=== PATIENT | female | born 1965 | race Caucasian/White ===

== ENCOUNTER → 2018-04-12 | Outpatient (CLI) | payer OTHER ==
--- NOTE | 2018-04-20 09:20 | MM ---
Reason for exam: screening (asymptomatic). Last mammogram was performed 3 years and 2 months ago. History: Patient is postmenopausal. Family history of breast cancer in maternal grandmother and breast cancer in mother. Took hormonal contraceptives for 15 years. Physical Findings: A clinical breast exam by your physician is recommended on an annual basis and results should be correlated with mammographic findings. MG Screening Mammo w CAD Bilateral CC and MLO view(s) were taken. Prior study comparison: February 16, 2015, mammogram, performed at [facility]. There are scattered fibroglandular densities. No significant changes when compared with prior studies. ASSESSMENT: Negative, BI-RAD 1 RECOMMENDATION: Routine screening mammogram of both breasts in 1 year.
== END | disposition home or self-care (01) ==
LOC: RADMAMWWP 11:14
PROVIDERS: ATTEND Pediatrics
DX: Z12.31 Encounter for screening mammogram for malignant neoplasm of breast (principal)
CPT/HCPCS: 77067

== ENCOUNTER 2019-05-17 18:10 | Emergency (ER) | payer OTHER ==
[2019-05-17 18:25] VITALS: BP 132/80; PULSE 115; RESP 16; TEMP 98
--- NOTE | 2019-05-17 19:56 | XR ---
EXAMINATION TYPE: XR tibia fibula LT DATE OF EXAM: 05/17/2019 CLINICAL HISTORY: Pain after laceration injury. TECHNIQUE: Two views of the left leg are obtained. COMPARISON: None. FINDINGS: There is no acute fracture or dislocation seen in the left tibia or fibula. The left knee and ankle joints appear within normal limits. Linear lucency consistent with laceration mid to dista l diaphyseal level of proximal tibia medial aspect with posterior rounded density noted on lateral pr ojection not clearly seen on frontal projection could reflect overlying bandage or gauze material, so ft tissue foreign body cannot be excluded. Correlate clinically. IMPRESSION: As above.
[2019-05-17] MEDS ORDERED: LIDOCAINE 1% INJ 10MG/ML (20 ML MDV) SQ ONE (20:18)
--- NOTE | 2019-05-17 20:18 | ED ---
Wound/Laceration HPI - General Chief Complaint: Wound/Laceration Stated Complaint: Leg lac Time Seen by Provider: 05/17/19 18:48 Source: patient Mode of arrival: ambulatory Limitations: no limitations - History of Present Illness Initial Comments: 53-year-old female presenting for left leg laceration. Patient states just prior to arrival she was standing on a glass table when her leg fell through the center but she states she sustained a laceration to the medial aspect of the left lower leg. Just proximal to the ankle joint. Patient states that her tetanus is up-to-date. Patient denies any numbness tingling or loss sensation or decreased range of motion at the ankle or foot. Patient denies any footdrop. Remaining review of system negative. Patient able to her upon arrival patient was applying pressure bleeding controlled. - Related Data Home Medications Medication Instructions Recorded Confirmed Baclofen 10 mg PO Q6H PRN 10/08/15 05/09/16 DULoxetine HCL [Cymbalta] 60 mg PO BID 10/08/15 05/09/16 Cyanocobalamin [Vitamin B-12] 500 mcg PO DAILY 10/09/15 05/09/16 HYDROcodone/APAP 7.5-325MG [[place] 1 tab PO Q6H PRN 10/09/15 05/09/16 7.5-325] Ibuprofen [Motrin] 1 tab PO TID PRN 10/09/15 05/09/16 ALPRAZolam [Xanax] 0.25 mg PO BID 11/01/15 05/09/16 buPROPion SR [Wellbutrin Sr] 150 mg PO BID 11/01/15 05/09/16 Pregabalin [Lyrica] 25 mg PO TID 11/29/15 05/09/16 Metoprolol Succinate (ER) [Toprol 25 mg PO QAM 03/18/16 05/09/16 Xl] [place]-3 Fatty Acids [[place]-3] 2,000 mg PO BID 03/18/16 05/09/16 Pantoprazole Sodium [Protonix] 40 mg PO QAM 03/18/16 05/09/16 Pravastatin Sodium [Pravachol] 40 mg PO HS 03/18/16 05/09/16 Previous Rx's Medication Instructions Recorded Cephalexin [Keflex] 500 mg PO Q8HR 5 Days #15 cap 05/17/19 Allergies Allergy/AdvReac Type Severity Reaction Status Date / Time amoxicillin Allergy VOMITING Verified 05/17/19 18:25 AND DIARRHEA Review of Systems ROS Statement: Those systems with pertinent positive or pertinent negative responses have been documented in the HPI. ROS Other: All systems not noted in ROS Statement are negative. Past Medical History Past Medical History: CVA/TIA, GERD/Reflux Additional Past Medical History / Comment(s): MIGRAINE HEADACHE. Recent hx. rapid heart rate, placed on medication. POST MENOPAUSAL. History of Any Multi-Drug Resistant Organisms: None Reported Past Surgical History: Tubal Ligation Additional Past Surgical History / Comment(s): Repair of brain aneurysm x3 2013. Past Anesthesia/Blood Transfusion Reactions: Family History of Problems w/ Anesthesia Additional Past Anesthesia/Blood Transfusion Reaction / Comment(s): daughter seizure with anesthesia, Past Psychological History: Anxiety Smoking Status: Current every day smoker Past Alcohol Use History: None Reported Past Drug Use History: None Reported - Past Family History Mother Family Medical History: Cancer General Exam - General Exam Comments Initial Comments: General: The patient is awake and alert, in no distress, and does not appear acutely ill. Eye: Pupils are equal, round and reactive to light, extra-ocular movements are intact. No nystagmus. There is normal conjunctiva bilaterally. No signs of icterus. Cardiovascular: There is a regular rate and rhythm. No murmur, rub or gallop is appreciated. Respiratory: Lungs are clear to auscultation, respirations are non-labored, breath sounds are equal. No wheezes, stridor, rales, or rhonchi. Musculoskeletal: Normal ROM, no tenderness. Strength 5/5 knee and ankle joint. Sensation intact proximal and distal to injury sitre. DP pulses equal bilaterally 2+. Neurological: A&O x 3. CN II-XII intact grossly, There are no obvious motor or sensory deficits. Coordination appears grossly intact. Speech is normal. Skin: Skin is warm and dry and no rashes. V shaped laceration 3x3 cm on each side of the v shape. No exposure of tendon, no active bleeding, no evidence of FB. Psychiatric: Cooperative, appropriate mood & affect, normal judgment. Limitations: no limitations Course Vital Signs 05/17/19 18:23 Temperature 98 F Pulse Rate 115 H Respiratory 16 Rate Blood Pressure 132/80 O2 Sat by Pulse 97 Oximetry Procedures - Laceration Laceration #1 Consent Obtained: verbal consent Indication: laceration Site: lower extremity (left leg) Size (cm): 6 Description: flap, irregular Depth: simple, single layer Anesthetic Used: lidocaine 1% Anesthesia Technique: local infiltration Amount (mls): 5 Pre-repair: wound explored, irrigated extensively, deep structures intact Type of Sutures: nylon Size of Sutures: 4-0 Number of Sutures: 18 Technique: simple, interrupted Patient Tolerated Procedure: well, no complications Additional Comments: Area cleansed with iodine extensively irrigated explored for foreign body no foreign body evident. No evidence of tendon injury. Or exposure. Medical Decision Making - Medical Decision Making 53-year-old female presents emergency department for evaluation of left leg laceration. No evidence of tendon injury. Patient's bleeding controlled. XRnegative for acute osseous process. Patient did have air suspicious for possible foreign body this was not patient examination and areas extensively irrigated. Patient tolerate procedure well. Patient had bacitracin and sterile bandage applied. Return parameters were discussed patient started on antibiotic. Patient discharged appearing well agreeable with care plan. Disposition Clinical Impression: Laceration of left leg Disposition: HOME SELF-CARE Condition: Good Instructions (If sedation given, give patient instructions): Care For Your Stitches (ED), Laceration (ED) Additional Instructions: Please use medication as discussed. Please follow-up with family doctor in the next 2 days for wound check. Removal of sutures on 7-10 days. Please return to emergency room if the symptoms increase or worsen or for any other concerns. Prescriptions: Cephalexin [Keflex] 500 mg PO Q8HR 5 Days #15 cap Is patient prescribed a controlled substance at d/c from ED?: No Referrals: Jones Armstrong MD [Primary Care Provider] - 1-2 days Time of Disposition: 20:59
== END 2019-05-17 21:10 | disposition home or self-care (01) ==
LOC: EC 18:10
DX: S81.812A Laceration without foreign body, left lower leg, initial encounter (principal); F41.9 Anxiety disorder, unspecified; K21.9 Gastro-esophageal reflux disease without esophagitis; F17.200 Nicotine dependence, unspecified, uncomplicated; Z79.899 Other long term (current) drug therapy; Z88.0 Allergy status to penicillin; Z86.73 Personal history of transient ischemic attack (TIA), and cerebral infarction without residual deficits; W01.110A Fall on same level from slipping, tripping and stumbling with subsequent striking against sharp glass, initial encounter
CPT/HCPCS: 73590; 99283; 12002; J2001

== ENCOUNTER → 2019-10-04 | Outpatient (CLI) | payer OTHER ==
--- NOTE | 2019-10-04 15:50 | CT ---
EXAMINATION TYPE: CT brain cspine wo con DATE OF EXAM: 10/04/2019 COMPARISON: CT dated 04/12/2013 HISTORY: Headaches and cervicalgia CT DLP: 1293 mGycm. Automated Exposure Control for Dose Reduction was Utilized. TECHNIQUE: CT scan of the head and cervical spine are performed without contrast. FINDINGS: Aneurysm coiling is seen of distal branches of the right middle cerebral artery and proxim al branches presumably of the right middle cerebral artery. This creates susceptibility artifact and slightly limits evaluation. Adjacent to this there is a small lacunar injury of the genu of the right internal capsule is CSF attenuated and chronic. Craniotomy change is seen of the right frontal lobe with craniectomy of the right temporal bone. Vascular stent is present of the cavernous portion of th e left internal carotid artery. Patency cannot be established without contrast. Postsurgical change o f C1 is also seen. There is no acute intracranial hemorrhage, mass effect, or midline shift identified. There is enceph alomalacia of the temporal lobe, likely postsurgical. Few patchy areas of hypoattenuation are seen wi thin the right periventricular white matter that may be postsurgical or on the basis of chronic micro angiopathy. Slight ex vacuo dilatation of the right lateral ventricle. The ventricles and sulci are w ithin normal limits in size. The globes are intact and the visualized sinuses are clear. Accessory s phenoid sinuses are evident with partial opacification of the left sphenoid sinus as there are inspis sated secretions. Cervical spine is visualized in its entirety from C1 through upper thoracic levels and demonstrates s atisfactory alignment without evidence of acute fracture or dislocation. Prevertebral soft tissue ap pears within normal limits. The C1-C2 articulation is unremarkable. Multilevel posterior disc osteophyte complexes are seen at C5-C6, C6-C7 and to a lesser degree at C7- T1. Multilevel facet arthropathy and uncovertebral hypertrophy are also seen. Multilevel intervertebr al disc space narrowing and anterior osteophytes are present with endplate sclerosis. Schmorl's node deformity of the superior endplate of C7. At C5-C6 and C6-C7 there is uncovertebral hypertrophy and facet arthropathy resulting in mild/moderat e bilateral neural foraminal narrowing. Broad-based disc bulge also results in at least mild spinal c anal stenosis. At C7-T1 there is mild bilateral uncovertebral hypertrophy and a small posterior disc osteophyte complex with mild right neural foraminal narrowing. No significant left neural foraminal n arrowing or spinal canal stenosis on CT. The lung apices demonstrate mild centrilobular emphysematous change. IMPRESSION: 1. There is no acute fracture or dislocation evident in the cervical spine. 2. No acute intracranial hemorrhage, mass effect, or midline shift is seen. 3. Craniotomy and craniectomy change of the right calvarium with encephalomalacia of the right tempor al lobe, patchy areas in the right frontal lobe, and old lacunar infarct of the genu of the right int ernal capsule. 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 Patency cannot be determined without contrast. 4. Mild burden nonspecific white matter change that may be on the basis of chronic microangiopathy (p articularly around the right periventricular white matter). 5. Moderate multilevel degenerative disc disease of the cervical spine with multilevel neural foramin al narrowing and at least mild spinal canal stenosis at C5-C6 and C6-C7. 6. Partial opacification with inspissated secretions of an accessory left sphenoid sinus.
== END | disposition home or self-care (01) ==
LOC: RADCTMAIN 15:19
PROVIDERS: ATTEND Psychiatry & Neurology Neurology
DX: M48.02 Spinal stenosis, cervical region (principal); M50.322 Other cervical disc degeneration at C5-C6 level; R90.89 Other abnormal findings on diagnostic imaging of central nervous system; G93.89 Other specified disorders of brain; I67.1 Cerebral aneurysm, nonruptured; R51 Headache; Z95.828 Presence of other vascular implants and grafts
CPT/HCPCS: 70450; 72125

== ENCOUNTER → 2020-02-17 | Outpatient (CLI) | payer OTHER ==
--- NOTE | 2020-02-17 10:46 | US ---
EXAMINATION TYPE: US carotid duplex BILAT DATE OF EXAM: 02/17/2020 COMPARISON: NONE CLINICAL HISTORY: R09.89 Other specified symptoms and signs involving. AMS EXAM MEASUREMENTS: RIGHT: Peak Systolic Velocity (PSV) cm/sec ----- Right CCA: 80.2 ----- Right ICA: 109 ----- Right ECA: 101 ICA/CCA ratio: 1.4 RIGHT: End Diastole cm/sec ----- Right CCA: 26.5 ----- Right ICA: 40.1 ----- Right ECA: 21.7 LEFT: Peak Systolic Velocity (PSV) cm/sec ----- Left CCA: 84.3 ----- Left ICA: 137 ----- Left ECA: 82.9 ICA/CCA ratio: 1.6 LEFT: End Diastole cm/sec ----- Left CCA: 29.2 ----- Left ICA: 45.2 ----- Left ECA: 17.0 VERTEBRALS (direction of flow): Right Vertebral: Antegrade Left Vertebral: Antegrade Rhythm: Normal No significant stenosis seen IMPRESSION: 1. Normal appearing carotid bifurcations without significant flow-limiting stenosis. Criteria for Assigning % of Stenosis / Diameter reduction (Estimation based on the indirect measurements of the internal carotid artery velocities (ICA PSV). 1. Normal (no stenosis)=ICA PSV < 125 cm/s: ratio < 2.0: ICA EDV<40 cm/s. 2. Less than 50% stenosis=ICA PSV < 125 cm/s: ratio < 2.0: ICA EDV<40 cm/s. 3. 50 to 69% stenosis=ICA PSV of 125 to 230 cm/s: ration 2.0 ? 4.0: ICA EDV 40-100 cm/s. 4. Greater than 70% stenosis to near occlusion= ICA PSV > 230 cm/s: ratio > 4.0: ICA EDV > 100 cm/s. 5. Near occlusion= ICA PSV velocities may be low or undetectable: variable ratio and ICA EDV. 6. Total occlusion=unable to detect flow.
== END | disposition home or self-care (01) ==
LOC: RADUSWWP 09:36
PROVIDERS: ATTEND Psychiatry & Neurology Neurology
DX: R09.89 Other specified symptoms and signs involving the circulatory and respiratory systems (principal)
CPT/HCPCS: 93880

== ENCOUNTER → 2020-08-20 | Outpatient (CLI) | payer OTHER ==
--- NOTE | 2020-08-20 15:44 | XR ---
Bilateral knees HISTORY: Knee pain 3 views of each knee submitted Posterior 3 changes are present, there is marginal spurring the medial compartments with joint space loss. Alignment is maintained. No fracture or dislocation. Suprapatellar increased attenuation is pre sent bilaterally. Spurring is present patellofemoral joints. IMPRESSION: Osteoarthritis, joint effusions.
--- NOTE | 2020-08-20 16:00 | XR ---
EXAMINATION TYPE: XR chest 2V DATE OF EXAM: 08/20/2020 COMPARISON: Chest x-ray 05/13/2013 HISTORY: R06.02, smoker TECHNIQUE: Frontal and lateral views of the chest are obtained. FINDINGS: There is no focal air space opacity, pleural effusion, or pneumothorax seen. The cardiac silhouette size is within normal limits. There are prominent lung volumes with flattening the hemidia phragms suggesting underlying COPD. Aorta is dense. There is thoracic spondylosis. Eventration of rig ht hemidiaphragm is noted. The osseous structures are intact. IMPRESSION: No acute cardiopulmonary process.
== END | disposition home or self-care (01) ==
LOC: LABWHC1 12:48
PROVIDERS: ATTEND Psychiatry & Neurology Neurology
DX: M17.0 Bilateral primary osteoarthritis of knee (principal); R06.02 Shortness of breath; M25.569 Pain in unspecified knee
CPT/HCPCS: 36415; 71046; 82306; 82607

== ENCOUNTER → 2021-05-23 | Outpatient (CLI) | payer OTHER ==
--- NOTE | 2021-05-23 15:40 | XR ---
EXAMINATION TYPE: XR chest 2V DATE OF EXAM: 05/23/2021 COMPARISON: Chest x-ray 08/20/2020 CT 10/04/2019 HISTORY: R 63.4 TECHNIQUE: Frontal and lateral views of the chest are obtained. FINDINGS: There is no focal air space opacity, pleural effusion, or pneumothorax seen. The cardiac silhouette size is within normal limits. Prominent lung markings suggest underlying COPD. The osseous structures are intact. IMPRESSION: No acute cardiopulmonary process. Emphysema.
== END | disposition home or self-care (01) ==
LOC: RADXRMAIN 15:01
PROVIDERS: ATTEND Physician Assistant
DX: J43.9 Emphysema, unspecified (principal)
CPT/HCPCS: 71046

== ENCOUNTER → 2021-07-03 | Outpatient (CLI) | payer OTHER ==
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
== END | disposition home or self-care (01) ==
LOC: RADCTMAIN 14:35
PROVIDERS: ATTEND Psychiatry & Neurology Neurology
DX: I72.0 Aneurysm of carotid artery (principal)
CPT/HCPCS: 70496; 70498; Q9967

== ENCOUNTER → 2023-10-28 | Outpatient (CLI) | payer OTHER ==
--- NOTE | 2023-11-03 13:38 | CT ---
EXAMINATION TYPE: CT chest wo/w con CT DLP: 444.4 mGycm, Automated exposure control for dose reduction was used. DATE OF EXAM: 10/28/2023 2:38 PM COMPARISON: Chest radiograph from same day. Multiple CTs of the chest with most recent on . CLINICAL INDICATION:Female, 58 years old with history of R91.8 pulmonary mass; PHH, pulmonary mass TECHNIQUE: Multiple axial images were obtained through the chest. Sagittal and coronal reformats were created for review. Contrast used:100 mL of Isovue 300 with IV Contrast (None if empty) Oral contrast used: (None if empty) FINDINGS: LUNGS/ PLEURA: Scattered patchy groundglass airspace disease with more focal consolidating process in the posterior right lower lobe. Differential diagnostic iterations include sarcoid, viral, bacterial , or less favored, neoplasm. AIRWAY: Patent and unremarkable. HEART: Size within normal limits. MEDIASTINUM: No gross evidence of adenopathy. VASCULATURE: No aortic aneurysm. MUSCULOSKELETAL: No acute osseous abnormalities SOFT TISSUES/LYMPH NODES: Unremarkable. LOWER NECK: No significant findings. UPPER ABDOMEN: No significant findings. IMPRESSION: Nonspecific airspace disease pattern. Consists of Scattered patchy, right lower and right middle lo be groundglass airspace disease with more focal consolidating process in the posterior right lower lo be. Differential diagnostic iterations include sarcoid, viral, bacterial, or less favored, neoplasm. CoVID pneumonia might have this appearance as well. Please correlate with laboratory studies, history, physical, etc., consider short interval 3 month fo llow-up
== END | disposition home or self-care (01) ==
LOC: RADCTMAIN 14:11
PROVIDERS: ATTEND Pediatrics
DX: J98.4 Other disorders of lung (principal); R91.8 Other nonspecific abnormal finding of lung field
CPT/HCPCS: 71270; Q9967

== ENCOUNTER 2023-12-16 11:38 | Day surgery (SDC) | payer OTHER ==
[~2023-12-16 11:38] MED LIST: ATROPINE SULFATE 0.4 MG/ML 1 ML VIAL IM ONE; DEXAMETHASONE SOD PHOSPHATE 4 MG/ML 1 ML VIAL IV ONE; HYDROmorphone 0.5 MG/0.5 ML SYRINGE IVP PRN; LACTATED RINGERS 1,000 ML IV SCH; LIDOCAINE 1% (10MG/ML) FOR IV START INTRADERMA PRN; ONDANSETRON 4 MG/2 ML VIAL IVP ONE
[2023-12-16] MEDS: LACTATED RINGERS 1,000 ML IV SCH (12:08)
[2023-12-16] MEDS ORDERED: ROCURONIUM 10 MG/ML (5 ML VIAL) IV ONE (12:34)
[2023-12-16] MEDS ORDERED: LIDOCAINE 1% INJ 10MG/ML (20 ML MDV) ONE (12:34)
[2023-12-16] MEDS ORDERED: PROPOFOL 10 MG/ML 20 ML VIAL IV ONE (12:34)
[2023-12-16] MEDS ORDERED: GLYCOPYRROLATE 0.2 MG/ML 2 ML VIAL ONE (12:34)
[2023-12-16] MEDS ORDERED: fentaNYL (PF) 50 MCG/ML 2 ML AMP ONE (12:34)
[2023-12-16] MEDS ORDERED: SUCCINYLCHOLINE CHLORIDE 200 MG/10 ML VIAL IV ONE (12:34)
[2023-12-16] MEDS ORDERED: MIDAZOLAM 2 MG/2 ML VIAL ONE (12:34)
[2023-12-16] MEDS ORDERED: NEOSTIGMINE 1 MG/ML 10 ML VIAL ONE (12:34)
--- NOTE | 2023-12-16 13:16 | OP ---
OPERATIVE REPORT DATE OF SERVICE : PROCEDURE PERFORMED: Bronchoscopy; airway examination; therapeutic lavage; BAL, right middle lobe; BAL, right lower lobe; brushes, right lower lobe; transbronchial biopsies, right lower lobe. PREOPERATIVE DIAGNOSIS: Ground-glass changes, right middle lobe, right lower lobe, rule out infection versus inflammation versus cancer. Postoperative diagnosis: Rule out infection, versus inflammation, versus cancer. Financial Systems Director, Dr. Charles TAO RENTAL CAR FERRY DRIVER: Dr. Zara Alcantar. DESCRIPTION OF PROCEDURE: The patient's procedure was done in room #1 [facility]. There was informed consent and universal timeout. Anesthesia provided general anesthesia for this patient. There was general endotracheal anesthesia. After the patient was adequately sedated and on the anesthesia machine, and being monitored, the bronchoscope was inserted through the bronchoscope adapter connected to the endotracheal tube. First, we did initial evaluation of both lungs. There were left upper lobe and its 2 segments, the lingula and its 2 segments, and left lower lobe and its 4 segments, all appeared normal. On the right side, the right upper lobe and its 3 segments were normal. There was fair amount of secretion noted emanating from the right middle lobe and right lower lobe. The 2 segments of the right middle lobe and the 5 segments of the right lower lobe, otherwise, appeared normal. Next, under fluoroscopic guidance, we did brushes to the right lower lobe. Next, after that, we did multiple transbronchial biopsies to the right lower lobe. There was no significant bleeding. We got about 8 or 9 good pieces. Subsequent to that, we did a formal BAL of the right middle lobe and a formal BAL of the right lower lobe. The patient tolerated the procedure well. The patient was stable throughout the procedure. There was no pneumothorax on fluoroscopy. The patient will need a formal chest x-ray. The patient will be recovered. There was no immediate complication. All the specimens will be sent to the laboratory for evaluation. MMODL / IJN: [id number] / MTDD
--- NOTE | 2023-12-16 13:24 | FL ---
EXAMINATION TYPE: FL bronchoscopy Intraoperative/procedural fluoroscopic services were provided. Tota l fluoroscopy time is 22.3 seconds with a total of 1 submitted images to PACS. Please see the operati ve/procedural note for further details. DAP: 0.8012 Gycm2
[2023-12-16 13:38] VITALS: TEMP 96.8
[2023-12-16 14:30] VITALS: BP 127/81; PULSE 68; RESP 16
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
[2023-12-17 04:20] LABS: Appearance,BF Clear (Clear); RBC, Body Fluid 5 /UL (0-2000)
[2023-12-17 05:00] LABS: Appearance,BF Bloody (Clear); RBC, Body Fluid 38700 /UL (0-2000)
[2023-12-17 09:12] LABS: Nucleated Cells, Body Fluid 13 /UL
[2023-12-17 09:14] LABS: Nucleated Cells, Body Fluid 50 /UL
== END 2023-12-16 15:01 | disposition home or self-care (01) ==
LOC: ORWHC2ENDO 11:38
PROVIDERS: ATTEND Internal Medicine Critical Care Medicine
DX: J98.4 Other disorders of lung (principal)
CPT/HCPCS: 87798 ×3; 87496; 87498; 87529; 88104; 88305; 89050; 87502; 87634; 87070; 87205; 87116; 87102; 87206; 87635; 71045; 31628; 31623; 31624; J2250; J0330; J2710; J2001; J3010; J2704; 31622

== ENCOUNTER → 2023-12-25 | Outpatient (CLI) | payer OTHER ==
--- NOTE | 2023-12-31 21:52 | PE ---
EXAMINATION TYPE: PET CT fusion skull to thigh DATE OF EXAM: 12/25/2023 COMPARISON: CT chest 10/28/2023 Prior PET/CT: None HISTORY: Pulmonary mass TECHNIQUE: Following the intravenous administration of 12.6 mCi of F-18 FDG, whole body images are p erformed from the skull base to the midthigh. Images are reviewed on the computer in the coronal, ax ial, and sagittal planes. Reconstructed rotating images are created on independent workstation and r eviewed on the computer. A localization and attenuation correction CT is performed in conjunction w ith the PET scan. DLP: 383.66 mGycm SCAN: Initial Blood glucose: 110 mg/dL Average Mediastinum SUV: 1.58 Average Liver SUV: 3.04 FINDINGS: NECK: No abnormal uptake THORAX: No abnormal uptake. Some nonspecific uptake at the medial border of the left scapula could be muscular in nature. A few small areas of nodularity at resolving areas of pneumonitis cannot have elevated uptake. ABDOMEN: No abnormal uptake PELVIS: No abnormal uptake OSSEOUS STRUCTURES: No abnormal uptake LOCALIZATION CT: Few diverticula to the sigmoid colon. Few nonspecific areas of mild infiltrate are p resent. Suspicious radiotracer within the lung boudreaux is not identified. There is a small nodule in t he posterior lateral right mid lung, image 94, SUV is normal at 0.88. COMPARISON: Density within the posterior right lung has diminished over the interval from the CT of . No suspicious uptake is evident within nodularity in the posterior left lung, image 99 the right middle lobe for asymmetries appear to be resolving. IMPRESSION: 1. No suspicious uptake to suggest primary or metastatic neoplasm.
== END | disposition home or self-care (01) ==
LOC: RADPETMAIN 06:53
PROVIDERS: ATTEND Internal Medicine Critical Care Medicine
DX: R91.8 Other nonspecific abnormal finding of lung field (principal)
CPT/HCPCS: 78815; A9552

== ENCOUNTER → 2024-10-05 | Outpatient (CLI) | payer OTHER ==
--- NOTE | 2024-10-05 08:59 | US ---
EXAMINATION TYPE: US abdomen complete DATE OF EXAM: 10/05/2024 COMPARISON: NONE CLINICAL INDICATION: Female, 59 years old with history of R14.0 ABD BLOATING; Bloating TECHNIQUE: Grayscale and color Doppler imaging of the abdomen was performed. FINDINGS: EXAM MEASUREMENTS: Liver Length: 15.9 cm Gallbladder Wall: 0.2 cm CBD: 0.7 cm, color Doppler imaging was utilized to isolate the common bile duct for measurement. Spleen: 8.3 cm Right Kidney: 8.8 x 4.6 x 4.8 cm Left Kidney: 9.8 x 3.8 x 3.9 cm Pancreas: Tail obscured by overlying bowel gas Liver: wnl, no dilated ducts, masses or cysts. Gallbladder: wnl, decompressed. Evidence for sonographic Miranda's sign: neg CBD: wnl Spleen: Not well seen Right Kidney: wnl, No hydronephrosis, calculi or masses seen Left Kidney: wnl, No hydronephrosis, calculi or masses seen Upper IVC: wnl Abd Aorta: No AAA visualized at time of scan The liver is homogenous. The intrahepatic portion of the IVC and proximal abdominal aorta are within normal limits. There is no evidence of cholelithiasis. Common bile duct is unremarkable. The visu alized portions of the pancreas are homogenous. The spleen is unremarkable. Kidneys are symmetric a nd free of hydronephrosis. No renal lesions are seen. IMPRESSION: No evidence for acute process. [facility], , 10/05/2024 8:57 AM
--- NOTE | 2024-10-05 09:00 | US ---
EXAMINATION TYPE: US pelvis complete transvag DATE OF EXAM: 10/05/2024 COMPARISON: NONE CLINICAL INDICATION: Female, 59 years old with history of R14.0 ABD BLOATING; abd bloating TECHNIQUE: Transvaginal (TV) and Transabdominal (TA) . Transabdominal grayscale sonographic images of the pelvis were acquired. Transvaginal sonographic im ages were medically necessary to better assess the following anatomy: Endometrium Doppler imaging: Not performed. FINDINGS: Date of LMP: CLINIC COORDINATOR, EXAM MEASUREMENTS: Uterus: 5.7 x 3.8 x 2.8 cm Endometrial Stripe: 0.3m Right Ovary: 3.0 x 1.7 x 2.0 cm 1. Uterus: Retroverted Nonshadowing echogenic foci seen 2. Endometrium: Fluid seen within endometrial canal 3. Right Ovary: Limited visualization, only seen transvaginally due to bowel gas. Appears difficult to penetrate and shadowy 4. Left Ovary: Obscured by overlying bowel gas 5. Bilateral Adnexa: no free fluid 6. Posterior cul-de-sac: no free fluid IMPRESSION: 1. No evidence for acute process. 2. Endometrium within normal limits. 3. Retroverted uterus. [facility], , 10/05/2024 8:58 AM
[2024-10-05 15:58] LABS: ALT 13 U/L (8-44); AST 19 U/L (13-35); Albumin 3.8 g/dL (3.8-4.9); Alkaline Phosphatase 103 U/L (41-126); BUN/Creat Ratio 12.78 Ratio (12.00-20.00); Blood Urea Nitrogen 11.5 mg/dL (9.0-27.0); Calcium 8.6 mg/dL (8.7-10.3); Carbon Dioxide 23.8 mmol/L (21.6-31.8); Chloride 103 mmol/L (96-109); Chol/HDL Ratio 3.84 Ratio; Globulin 1.9 g/dL (1.6-3.3); Glucose 89 mg/dL (70-110); LDL Cholesterol,Calculated 58.1 mg/dL (0.0-131.0); Potassium 3.3 mmol/L (3.5-5.5); Sodium 137 mmol/L (135-145); Total Bilirubin 0.3 mg/dL (0.3-1.2); Total Protein 5.7 g/dL (6.2-8.2)
== END | disposition home or self-care (01) ==
LOC: RADUSWWP 08:10
PROVIDERS: ATTEND Pediatrics
DX: E78.5 Hyperlipidemia, unspecified (principal); R14.0 Abdominal distension (gaseous); N85.4 Malposition of uterus
CPT/HCPCS: 76700; 76830; 76856; 80053; 80061